=== PATIENT | female | born 1970 | race Caucasian/White ===

== ENCOUNTER 2018-10-16 08:11 | Day surgery (SDC) | payer OTHER ==
[~2018-10-16 08:11] MED LIST: CEFAZOLIN 1 GM INJ; DESFLURANE 15 MIN; KETOROLAC 30 MG INJ
[2018-10-16] MEDS ORDERED: SOD CHLORIDE 0.9% 1,000 ML IV (10:00)
[2018-10-16] MEDS ORDERED: CEFAZOLIN 1 GM/50 ML (PMX) 50 ML IVPB (10:00)
[2018-10-16] MEDS ORDERED: PROPOFOL 20 ML ×2 (15:03→16:11)
[2018-10-16] MEDS ORDERED: SUCCINYLCHOLINE CHLORIDE 100 MG/5 ML SYG IV (15:03)
[2018-10-16] MEDS ORDERED: MIDAZOLAM 1 MG/ML 2 ML INJ (15:03)
[2018-10-16] MEDS ORDERED: ROCURONIUM 50 MG INJ (15:03)
[2018-10-16] MEDS ORDERED: FENTAnyl 50 MCG/ML VIAL ×2 (15:03→15:29)
[2018-10-16] MEDS ORDERED: ONDANSETRON 4 MG INJ (15:24)
[2018-10-16] MEDS ORDERED: METOCLOPRAMIDE 10 MG INJ (15:24)
[2018-10-16] MEDS ORDERED: KETOROLAC 30 MG INJ IV (16:00)
[2018-10-16] MEDS ORDERED: MEPERIDINE 25 MG INJ IV (16:00)
[2018-10-16] MEDS ORDERED: LABETALOL HCL 20MG INJ IV (16:00)
[2018-10-16] MEDS ORDERED: hydrALAzine 20 MG INJ IV (16:00)
[2018-10-16] MEDS ORDERED: ONDANSETRON 4 MG INJ IV (16:00)
[2018-10-16] MEDS ORDERED: OXYCODONE/ACETAMINOPHEN (5/325) TAB PO (16:00)
[2018-10-16] MEDS ORDERED: METOCLOPRAMIDE 10 MG INJ IV (16:00)
[2018-10-16] MEDS ORDERED: HYDROmorphONE 1 MG/5 ML IV SYRINGE IV (16:00)
[2018-10-16] MEDS ORDERED: DIPHENHYDRAMINE 50 MG INJ IV (16:00)
[2018-10-16] MEDS ORDERED: ALBUTEROL 0.083% (NEB) 2.5 MG/3 ML AMP HHN (16:00)
[2018-10-16] MEDS ORDERED: morphine (1 MG/ML) 10ML SYRINGE IV (16:00)
[2018-10-16] MEDS ORDERED: FENTAnyl 50 MCG/ML VIAL IV (16:00)
[2018-10-16] MEDS ORDERED: HYDROCODONE/APAP (7.5/325) TAB PO (16:30)
== END 2018-10-16 18:10 | disposition home or self-care (01) ==
LOC: SDS 08:11
DX: D05.12 Intraductal carcinoma in situ of left breast (principal); E78.5 Hyperlipidemia, unspecified; I10 Essential (primary) hypertension; E66.01 Morbid (severe) obesity due to excess calories
CPT/HCPCS: 19301; 84703; 88307

== ENCOUNTER 2019-02-16 08:15 | Day surgery (SDC) | payer OTHER ==
[~2019-02-16 08:15] MED LIST changes: -CEFAZOLIN 1 GM INJ; +CEFAZOLIN 2 GM/50 ML (PMX) 50 ML IVPB; -DESFLURANE 15 MIN; -KETOROLAC 30 MG INJ
[2019-02-16 08:56] LABS: ADD MAN DIFF? NO
[2019-02-16 09:00] LABS: WHITE BLOOD COUNT 5.5 10^3/ul (4.8-10.8)
[2019-02-16 09:00] LABS: BASOPHIL # 0.1 10^3/ul (0.0-0.1); BASOPHILS % 1.3 % (0.0-2.0); EOSINOPHILS # 0.2 10^3/ul (0.0-0.5); EOSINOPHILS % 3.1 % (0.0-7.0); HEMATOCRIT 41.6 % (37.0-47.0); HEMOGLOBIN 13.6 g/dl (12.0-16.0); LYMPHOCYTES # 1.8 10^3/ul (0.8-2.9); LYMPHOCYTES % 31.9 % (15.0-51.0); MEAN CORPUSCULAR HEMOGLOBIN 27.7 pg (29.0-33.0); MEAN CORPUSCULAR HGB CONC 32.7 g/dl (32.0-37.0); MEAN CORPUSCULAR VOLUME 84.7 fl (82.0-101.0); MEAN PLATELET VOLUME 10.2 fl (7.4-10.4); MONOCYTE # 0.5 10^3/ul (0.3-0.9); NEUTROPHILS % 54.5 % (39.0-77.0); PLATELET COUNT 291 10^3/UL (140-415); RED BLOOD COUNT 4.91 10^6/ul (4.20-5.40); RED CELL DISTRIBUTION WIDTH 12.9 % (11.5-14.5)
[2019-02-16 09:19] LABS: ALANINE AMINOTRANSFERASE 24 IU/L (13-69); ALBUMIN 4.1 g/dl (3.3-4.9); ALKALINE PHOSPHATASE 45 IU/L (42-121); ANION GAP 7 (5-13); ASPARTATE AMINO TRANSFERASE 21 IU/L (15-46); BILIRUBIN,INDIRECT 0.5 mg/dl (0-1.1); BILIRUBIN,TOTAL 0.5 mg/dl (0.2-1.3); BLOOD UREA NITROGEN 17 mg/dl (7-20); CALCIUM 8.7 mg/dl (8.4-10.2); CARBON DIOXIDE 29 mmol/L (21-31); CHLORIDE 106 mmol/L (97-110); CREATININE 0.58 mg/dl (0.44-1.00); Estimated GFR > 60 mL/min (>60); GLUCOSE 115 mg/dl (70-220); INR 0.93; POTASSIUM 4.2 mmol/L (3.5-5.1); PROTIME 12.6 Sec (11.9-14.9); SODIUM 142 mmol/L (135-144); TOTAL PROTEIN 7.5 g/dl (6.1-8.1)
[2019-02-16 09:20] LABS: PARTIAL THROMBOPLASTIN TIME 31.2 Sec (23.0-35.0)
[2019-02-16] MEDS ORDERED: HYDROmorphONE 1 MG/5 ML IV SYRINGE IV ×3 (14:00)
[2019-02-16] MEDS ORDERED: MEPERIDINE 25 MG INJ IV (14:00)
[2019-02-16] MEDS ORDERED: OXYCODONE/ACETAMINOPHEN (5/325) TAB PO (14:00)
[2019-02-16] MEDS ORDERED: FENTAnyl 50 MCG/ML VIAL IV (14:00)
[2019-02-16] MEDS ORDERED: DIPHENHYDRAMINE 50 MG INJ IV (14:00)
[2019-02-16] MEDS ORDERED: LABETALOL HCL 20MG INJ IV (14:00)
[2019-02-16] MEDS ORDERED: PROCHLORPERAZINE 10 MG INJ IV (14:00)
[2019-02-16] MEDS ORDERED: ONDANSETRON 4 MG INJ IV (14:00)
[2019-02-16] MEDS ORDERED: hydrALAzine 20 MG INJ IV (14:00)
[2019-02-16] MEDS: SOD CHLORIDE 0.9% 1,000 ML IV (14:06)
[2019-02-16] MEDS ORDERED: MIDAZOLAM 1 MG/ML 2 ML INJ (14:22)
[2019-02-16] MEDS ORDERED: LIDOCAINE 2% (SDV) 5 ML INJ (14:22)
[2019-02-16] MEDS ORDERED: PROPOFOL 20 ML ×2 (14:22→14:41)
[2019-02-16] MEDS ORDERED: FAMOTIDINE 20 MG INJ (14:41)
[2019-02-16] MEDS ORDERED: CEFAZOLIN 1 GM INJ (14:41)
[2019-02-16] MEDS ORDERED: DEXAMETHASONE 4 MG/ML 5 ML INJ (14:41)
[2019-02-16] MEDS ORDERED: ONDANSETRON 4 MG INJ (14:41)
[2019-02-16] MEDS ORDERED: FENTAnyl 50 MCG/ML VIAL (14:47)
[2019-02-16] MEDS ORDERED: HYDROmorphONE 2 MG/ML SYG (14:48)
[2019-02-16] MEDS ORDERED: SUCCINYLCHOLINE CHLORIDE 100 MG/5 ML SYG IV ×2 (14:56→14:59)
[2019-02-16] MEDS ORDERED: PHENYLephrine (100 MCG/ML) 10ML SYG (15:14)
[2019-02-16] MEDS ORDERED: HYDROCODONE/APAP (7.5/325) TAB PO (16:00)
== END 2019-02-16 18:06 | disposition home or self-care (01) ==
LOC: SDS 08:15
DX: N64.1 Fat necrosis of breast (principal); I10 Essential (primary) hypertension; E78.5 Hyperlipidemia, unspecified; E66.01 Morbid (severe) obesity due to excess calories; Z68.42 Body mass index [BMI] 45.0-49.9, adult
CPT/HCPCS: 19301; 80053; 84703; 85025; 85610; 85730; 88307